=== PATIENT | male | born 1970 | race Caucasian/White ===

== ENCOUNTER 2018-07-10 07:45 | Day surgery (SDC) | payer OTHER ==
[2018-07-10] MEDS ORDERED: NS 1,000 ML IV ONE (07:46)
[2018-07-10] MEDS ORDERED: FAMOTIDINE 20 MG TAB PO ONE (07:46)
[2018-07-10] MEDS ORDERED: DIAZEPAM 5 MG TAB PO ONE (07:46)
[2018-07-10] MEDS ORDERED: ASPIRIN EC 325 MG TAB PO ONE (07:46)
[2018-07-10] MEDS ORDERED: diphenhydrAMINE 25 MG CAP PO ONE (07:46)
[2018-07-10 08:29] LABS: PLATELET COUNT 138 10^3/uL (150-400)
[2018-07-10 08:36] LABS: PROTIME(PATIENT) 13.4 SEC (12.0-15.0)
[2018-07-10] MEDS ORDERED: VERAPAMIL 5 MG/2 ML VIAL ONE (08:52)
[2018-07-10] MEDS ORDERED: LIDOCAINE 1% 300 MG/30 ML SDV ONE (08:52)
[2018-07-10] MEDS ORDERED: fentaNYL 100 MCG/2 ML INJ ONE ×2 (08:52→09:53)
[2018-07-10] MEDS ORDERED: MIDAZOLAM 2 MG/2 ML VIAL ONE ×2 (08:52→09:53)
[2018-07-10] MEDS ORDERED: HEPARIN 10,000 UNIT/10 ML MDV (1,000 UNIT/ML) ONE (08:53)
[2018-07-10] MEDS ORDERED: IOPAMIDOL (ISOVUE-370) 150 ML BTL IV ONE (08:53)
--- NOTE | 2018-07-10 08:55 | CPEKG ---
Test Reason : OPEN Blood Pressure : / mmHG Vent. Rate : 074 BPM Atrial Rate : 072 BPM P-R Int : 164 ms QRS Dur : 107 ms QT Int : 402 ms P-R-T Axes : 039 113 -12 degrees QTc Int : 446 ms Sinus rhythm Consider right ventricular hypertrophy Borderline T abnormalities, inferior leads Confirmed by Donny Hodges ([id number]) on 07/10/2018 8:54:50 AM Referred By: Confirmed By:Donny Hodges
--- NOTE | 2018-07-10 09:18 | PDPROPOC ---
Sedation Plan of Care Sedation Plan of Care: vital signs stable, mental status noted, patient educated of risks, benefits, alternatives, patient can tolerate sedation Planned drugs: fentanyl, midazolam Mallampati Reference Image:
--- NOTE | 2018-07-10 09:28 | PDPROPOC ---
Sedation Plan of Care Sedation Plan of Care: vital signs stable, mental status noted, patient educated of risks, benefits, alternatives, patient can tolerate sedation ASA Classification: ASA 3 Planned drugs: fentanyl, midazolam Mallampati Score: Class 3 Mallampati Reference Image: Patient passed 3-3-2 rule?: Yes
--- NOTE | 2018-07-10 09:29 | PDHPUP ---
History & Physical Update H&P update statement: This history and physical update is based on an assessment of the patient which was completed after admission or registration (within 24 hours), but prior to the surgery/procedure. H&P update: H&P reviewed & patient examined, changes noted (CCS Class II angina , intermediate risk stress test)
--- NOTE | 2018-07-10 09:44 | PDDXCAT ---
Diagnostic Cath Note - . 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 No evidence of flow limiting obstruction. LAD: is 3.5mm in size. Gives rise to a 2.5mm second diagonal which provides flow to the anterior lateral wall. Maximal stenosis in the mid LAD is at 20 percent. LCX: is 4mm in size. Gives rise to two obtuse vessels. Luminal irregularities are consistent with atherosclerosis. Maximal stenosis in the circumflex and OM system is 10 percent. RCA: is 3mm in size and is a dominant vessel. The RCA gives rise to the PDA and small PLV branch. There is ARIANNA III flow. EDP: 15mmHg LVEF: 65% Wall motion: There are no resting segmental wall motion abnormalities. The visualized portion of the thoracic aortic valve reveals three sinuses of valsalva most consistent with a trileaflet valve. There is no gradient on pullback across the aortic valve. There is no evidence of darnell dissection or aneurysm formation. Complications: NONE Estimated blood loss: <50ml Closure method: Angioseal Assessment: The patient has a normal left ventricular chamber size with preserved left ventricular systolic function. The patient has non flow limiting disease as detailed above. There is no evidence of Mitral regurgitation, Aortic Stenosis, or thoracic aortic aneurysm. The nuclear stress test appears to have been a false postive study. Plan: The patient has non-flow limiting coronary disease that should be treated medically to achieve a non-HDL Cholesterol of less than 100 mg/dL, LDL of less than 70mg/dL and anti platelet therapy with ASA is also recommended specifically a dose of 81mg per day. Intervention: NONE
[2018-07-10] MEDS ORDERED: HYDROCODONE/APAP 5/325 TAB PO PRN (10:29)
[2018-07-10] MEDS ORDERED: OXYCODONE/APAP 5/325 TAB PO PRN (10:29)
[2018-07-10] MEDS ORDERED: ATROPINE SULFATE 1 MG/10 ML SYR IVP PRN (10:29)
[2018-07-10] MEDS ORDERED: NITROGLYCERIN 0.4 MG BTL SL PRN (10:29)
[2018-07-10] MEDS ORDERED: ONDANSETRON 4 MG/2 ML VIAL IVP PRN (10:29)
== END 2018-07-10 13:30 | disposition home or self-care (01) ==
LOC: FCATH 07:45
PROVIDERS: ATTEND Internal Medicine Cardiovascular Disease
DX: I25.10 Atherosclerotic heart disease of native coronary artery without angina pectoris (principal); R00.2 Palpitations; E78.5 Hyperlipidemia, unspecified
CPT/HCPCS: J1644; J2250; J3010; Q9967